=== PATIENT | male | born 1955 | race Caucasian/White ===

== ENCOUNTER → 2017-03-14 | Outpatient (CLI) | payer OTHER ==
[~2017-03-14] MED LIST: AMLO10TA2 PO; CETI10 PO; GABA300C5 PO; HYDR25TA5 PO; LISI40TA PO; PRAV20TA2 PO; [UNRECOGNIZED DRUG - OTHER] SL
[2017-03-14 09:18] LABS: AUTOMATED NEUTROPHIL # 2.6 TH/MM3 (1.8-7.7); BASOPHIL % 0.6 % (0.0-2.0); EOSINOPHIL # 0.2 TH/MM3 (0-0.4); EOSINOPHIL % 3.7 % (0.0-4.0); HEMATOCRIT 48.1 % (39.0-51.0); HEMO FLAGS DIFF FINAL; LYMPH % 32.5 % (9.0-44.0); LYMPHOCYTE # 1.8 TH/MM3 (1.0-4.8); MEAN CELL VOLUME 94.5 FL (80.0-100.0); MEAN CORPUSCULAR HEMOGLOBIN 31.4 PG (27.0-34.0); MEAN CORPUSCULAR HGB CONC 33.2 % (32.0-36.0); MONO % 15.6 % (0.0-8.0); NEUT % 47.6 % (16.0-70.0); PLATELET COUNT 112 TH/MM3 (150-450); RED BLOOD COUNT 5.09 MIL/MM3 (4.50-5.90); RED CELL DISTRIBUTION WIDTH 14.3 % (11.6-17.2); WHITE BLOOD COUNT 5.5 TH/MM3 (4.0-11.0)
[2017-03-14 09:40] LABS: ANION GAP 9 MEQ/L (5-15); AST (GOT) 108 U/L (15-37); BICARBONATE 27.3 MEQ/L (21.0-32.0); BLOOD UREA NITROGEN 8 MG/DL (7-18); CHLORIDE 104 MEQ/L (98-107); GLOMERULAR FILTRATION RATE 87 ML/MIN (>89); GLUCOSE,FASTING 113 MG/DL (74-99); POTASSIUM 4.3 MEQ/L (3.5-5.1); SODIUM (NA) 140 MEQ/L (136-145)
[2017-03-14 09:41] LABS: ALT (GPT) 158 U/L (12-78)
[2017-03-14 09:51] LABS: ALKALINE PHOSPHATASE 78 U/L (45-117); HDL CHOLESTEROL 44.7 MG/DL (40.0-60.0); LDL CHOLESTEROL 81 MG/DL (0-99); TOTAL BILIRUBIN ADULT 1.2 MG/DL (0.2-1.0)
== END ==
LOC: PLAB 07:46
PROVIDERS: ATTEND Family Medicine
DX: I10 Essential (primary) hypertension (principal); B19.20 Unspecified viral hepatitis C without hepatic coma; E66.9 Obesity, unspecified
CPT/HCPCS: 36415; 80053; 80061; 84443; 85025

== ENCOUNTER → 2017-06-20 | Outpatient (CLI) | payer OTHER ==
[~2017-06-20] MED LIST changes: -[UNRECOGNIZED DRUG - OTHER] SL
== END ==
LOC: PLAB 11:58
PROVIDERS: ATTEND Family Medicine
DX: B19.20 Unspecified viral hepatitis C without hepatic coma (principal); R77.2 Abnormality of alphafetoprotein
CPT/HCPCS: 36415; 82105

== ENCOUNTER → 2017-06-24 | Outpatient (CLI) | payer OTHER ==
[~2017-06-24] MED LIST changes: +IOHEXOL 350 MG/ML 10 ML VIAL (for RAD DIAG) IVCONTRAST ONE
--- NOTE | 2017-06-24 14:13 | RADRPT ---
EXAM DATE/TIME: 06/24/2017 13:25 [place] COMPARISON: US ABDOMEN - LIVER, February 29, 2016, 10:02. INDICATIONS : Abdominal pain. IV CONTRAST: 96 cc Omnipaque 350 (iohexol) IV ORAL CONTRAST: Prescribed oral contrast ingested. RADIATION DOSE: 16.02 CTDIvol (mGy) MEDICAL HISTORY : Hypertension. SURGICAL HISTORY : None. ENCOUNTER: Initial ACUITY: 1 day PAIN SCALE: 2/10 LOCATION: Bilateral abdomen TECHNIQUE: Volumetric scanning of the abdomen was performed. Using automated exposure control and adjustment of the mA and/or kV according to patient size, radiation dose was kept as low as reasonably achievable to obtain optimal diagnostic quality images. DICOM format image data is available electronically for review and comparison. FINDINGS: Lung bases are clear. Osseous structures are intact. No pleural or pericardial effusions. There is he patic steatosis identified. Gallbladder, spleen, pancreas, adrenal glands, kidneys are unremarkable. Atherosclerotic calcifications of the aorta and iliac vessels. Stomach is unremarkable. No evidence o f bowel obstruction. There are a few lymph nodes in the upper abdomen periportal region including a p ortal caval 1.2 cm short axis node, 9.8 mm short axis peripancreatic lymph node. CONCLUSION: 1. Hepatic steatosis. 2. Atherosclerosis. Bonifacio Olvera MD on June 24, 2017 at 14:05 Board Certified Radiologist. This report was verified electronically.
== END ==
LOC: HRAD 11:50
PROVIDERS: ATTEND Family Medicine
DX: B19.20 Unspecified viral hepatitis C without hepatic coma (principal)
CPT/HCPCS: 74160; Q9967

== ENCOUNTER → 2017-06-27 | Outpatient (CLI) | payer OTHER ==
[~2017-06-27] MED LIST changes: -IOHEXOL 350 MG/ML 10 ML VIAL (for RAD DIAG) IVCONTRAST ONE
[2017-06-27 10:25] LABS: AMYLASE 70 U/L (25-115)
== END ==
LOC: CLAB 09:32
PROVIDERS: ATTEND Nurse Practitioner Family
DX: I89.9 Noninfective disorder of lymphatic vessels and lymph nodes, unspecified (principal)
CPT/HCPCS: 36415; 82150; 83690